=== PATIENT | female | born 1935 | race Caucasian/White ===

== ENCOUNTER 2016-08-10 08:30 | Observation (INO) | payer MEDICARE, OTHER ==
[~2016-08-10] VITALS: Ht 149.9 cm; Wt 59.0 kg
[~2016-08-10 08:30] MED LIST: ALEN70TA3 PO; CYCL10TA2 PO; DOCU-27 PO; DONE5TAB7 PO; FERR-26 PO; GABA600T2 PO; HYDR-2666 PO; HYDR25TA9 PO; LACT1CAP6 PO; LISI40TA PO; MULT1CAP15 PO; NAPR500T PO; OMEP40CA5 PO; SIMV20TA3 PO
--- NOTE | 2016-08-10 09:13 | ED.ADGEN ---
Past Medical History Past Medical History: Dementia, Hypertension Additional Past Medical Histor: neuropathy Past Surgical History: Other Alcohol Use: None Drug Use: None Adult General Chief Complaint Chief Complaint: OTHER COMPLAINTS HPI HPI Patient is a 81 year old woman, with history of dementia, hypertension, esophageal stricture, hiatal hernia, with previous food bolus impaction that is resolved over time, who presents to the emergency department with her daughter with report of a possible food bolus impaction since about 1 PM yesterday. Patient states that she was eating M[place]ese food, and felt as though the food became stuck in the upper portion of her throat. Has been attempting to dislodge the food since that time, usually it takes her about an hour after eating for food fully settle. Patient was unable to take her medications last night due to the inability to swallow. Patient did try swallowing water prior to coming to the ED is morning, and did fail. She states she is having mild soreness in her chest, denies any previous chest pain, any difficulty breathing , any vomiting, any nausea, any weakness emesis or tingling, any injuries. Patient has previously had an esophageal stricture with Dr. Fields, last occurred about a year ago. Patient is spitting up some clear phlegm in the ED. Review of Systems Review of Systems Constitutional: Denies fever or chills. [] Eyes: Denies change in visual acuity. [] HENT: Denies nasal congestion or sore throat. [] Respiratory: Denies cough or shortness of breath. [] Cardiovascular: Anterior chest soreness after coughing attending to swallow for the past several hours. Sensation of food bolus impaction. GI: Denies abdominal pain, nausea, vomiting, bloody stools or diarrhea. [] : Denies dysuria. [] Musculoskeletal: Denies back pain or joint pain. [] Integument: Denies rash. [] Neurologic: Denies headache, focal weakness or sensory changes. [] Endocrine: Denies polyuria or polydipsia. [] Lymphatic: Denies swollen glands. [] Psychiatric: Denies depression or anxiety. [] Current Medications Current Medications Current Medications Medications (Trade) Dose Ordered Sig/Ever Start Time Stop Time Status Last Admin Dose Admin Glucagon (Glucagen) 1 mg 1X ONCE 08/10/16 09:15 08/10/16 09:16 DC 08/10/16 09:48 1 MG Multi-Ingredient Mouthwash/Gargle (Gi Cocktail Single Dose) 15 ml 1X ONCE 08/10/16 10:15 08/10/16 10:17 DC 08/10/16 10:23 15 ML Nitroglycerin (Nitrostat) 0.4 mg PRN Q5MIN PRN 08/10/16 09:15 08/10/16 09:48 0.4 MG Allergies Allergies Allergies Coded Allergies Type Severity Reaction Last Updated Verified codeine Adverse Reaction Intermediate Nausea and Vomiting 08/15/15 Yes Physical Exam Physical Exam Constitutional: Well developed, well nourished, no acute distress, non-toxic appearance. Patient spitting clear mucus into basin. HENT: Normocephalic, atraumatic, bilateral external ears normal, oropharynx moist, nose normal. [Unable to visualize any abnormalities on examination, oropharynx is mildly injected but no exudate identified. Eyes: PERRLA, EOMI, conjunctiva normal, no discharge. [] Neck: Normal range of motion, no tenderness, supple, no stridor. [] Cardiovascular:Heart rate regular rhythm, no murmur , S1, S2, no rubs or gallops. [] No crepitus, mild anterior chest wall tenderness. Lungs & Thorax: Bilateral breath sounds clear to auscultation, no wheezing, rhonchi, rales. No chest wall tenderness or crepitus. [] Abdomen: Bowel sounds normal, soft, no tenderness, no masses, no pulsatile masses. [] Skin: Warm, dry, no erythema, no rash. [] Back: No tenderness, no CVA tenderness. [] Extremities: No tenderness, no cyanosis, no clubbing, ROM intact, no edema. [] Neurologic: Alert and oriented X 3, normal motor function, normal sensory function, no focal deficits noted. [] Psychologic: Affect normal, judgement normal, mood normal. [] Current Patient Data Vital Signs Vital Signs Date Time Temp Pulse Resp B/P Pulse Ox O2 Delivery O2 Flow Rate FiO2 08/10/16 09:48 71 198/86 08/10/16 08:40 98.2 16 99 Room Air 98.2 Lab Values Laboratory Tests Test 08/10/16 10:52 POC Hemoglobin 15.0g/dL (12-15) POC Hematocrit 44% (36-40) H POC Sodium 146mmol/L (135-145) H POC Potassium 4.1mmol/L (3.5-5.0) POC Chloride 110mmol/L (98-110) POC Total CO2 26mmol/L (23-32) Anion Gap 15mmol/L (6-14) H POC Blood Urea Nitrogen 22mg/dL (8-26) POC Creatinine 0.8mg/dL (0.5-1.4) Glucose Level 97mg/dL (70-99) POC Ionized Calcium (Maxx) 1.09mmol/L (1.13-1.32) L Laboratory Tests 08/10/16 10:52 EKG EKG EC: Sinus rhythm, heart rate 60 beats/minute, upright axis, low limb lead voltage, QTC of 430, QRS of 76, [place] 142, no ST elevations or depressions, no evidence of acute ST abnormalities. As interpreted by me. Radiology/Procedures Radiology/Procedures [] [address] [place], [place] [id number] IMAGING REPORT Signed PATIENT: THANH TAVERAS ACCOUNT: [id number] : 1935 LOCATION: ER AGE: 81 SEX: F EXAM STATUS: PRE ER ORD. PHYSICIAN: AMANDA BLAIR DO REASON: cough/CP/possible food bolus impaction PROCEDURE: CHEST PA & LATERAL Chest, 2 views, 08/10/2016: History: Possible food impaction The study is correlated with a CT chest exam from 11/17/2012. There is a known large hiatal hernia extending to the left of midline. There are prominent epicardial fat pads. The heart is probably within normal limits in size. There is calcific plaquing and tortuosity of the thoracic aorta. The pulmonary vascularity is normal. No acute infiltrate is seen. There is no evidence of pleural fluid. Mild spurring is present in the spine. IMPRESSION: 1. Large hiatal hernia. 2. No acute abnormality is detected. DICTATED and SIGNED BY: PAIGE LEON MD DATE: 08/10/16 0924 CC: AMANDA BLAIR DO; DESTINI JAIMES MD ~ Course & Med Decision Making Course & Med Decision Making Concern for recurrent food bolus impaction, with possible underlying esophageal stricture. Patient denies any chest pain except with coughing, has not had any vomiting, no difficult breathing, has been attempting to drink fluids at home since 1 PM yesterday. In the ED, I discussed use of glucagon, nitroglycerin to see if we can establish easing of the esophagus, in order to allow the food bolus to pass. Patient is not previously required endoscopy for removal of food bolus impaction, she states that it has taken some time, but they have always passed previously on her own. Patient received IV glucagon, nitroglycerin in the ED, spit up a small amount of food and fluid, and stated that she felt as though the obstruction was resolved, was given a trial with by mouth fluids, which she initially tolerated. Patient then stated that she felt "there is still some in there", and spit up a small amount of mucus. At that point, I contacted the patient's GI physician, Dr. Fields, and discussed findings and examination as above. Patient's chest x-ray is unremarkable, and she has stable vital signs in the emergency department, plan at this point will be to take her to the OR for intubation for airway protection, and EGD. I did discuss this with patient and daughter bedside, they're agreeable with this plan. Patient had an i-STAT performed which was unremarkable, ECG performed which was not concerning. Did contact health meter supervisor regarding arranging for anesthesia and the GI team to to perform this procedure emergently. Findings as above discussed with Dr. Velásquez of internal medicine, patient accepted to her service for admission as an observation at this point, if patient is able to tolerate procedure without issue, likely will be discharged home after it is completed. Patient remained stable during her ED course, transferred to the floor without issue. [] Dragon Disclaimer Dragon Disclaimer This electronic medical record was generated, in whole or in part, using a voice recognition dictation system. Departure Impression: Primary Impression: Esophageal abnormality Disposition: ADMITTED INPATIENT Admitting Physician: Jerald Velásquez Condition: STABLE AMANDA BLAIR DO Aug 10, 2016 09:13
[2016-08-10] MEDS ORDERED: GLUCAGON,HUMAN RECOMBINANT 1 MG/ML VIAL. IV ONE (09:15)
[2016-08-10] MEDS ORDERED: NITROGLYCERIN SUBLINGUAL 0.4 MG BOTTLE OF 25. SL PRN (09:15)
--- NOTE | 2016-08-10 09:29 | RAD ---
Chest, 2 views, 08/10/2016: History: Possible food impaction The study is correlated with a CT chest exam from 11/17/2012. There is a known large hiatal hernia extending to the left of midline. There are prominent epicardial fat pads. The heart is probably within normal limits in size. There is calcific plaquing and tortuosity of the thoracic aorta. The pulmonary vascularity is normal. No acute infiltrate is seen. There is no evidence of pleural fluid. Mild spurring is present in the spine. IMPRESSION: 1. Large hiatal hernia. 2. No acute abnormality is detected.
[2016-08-10] MEDS ORDERED: LIDO:MAALOX:DONNATAL 1:1:1 15 ML SINGLE DOSE SWSW ONE (10:15)
[2016-08-10 10:57] LABS: POTASSIUM ISTAT 4.1 mmol/L (3.5-5.0)
[2016-08-10] MEDS ORDERED: METOCLOPRAMIDE HCL 10 MG/2 ML VIAL. IV ONE (11:30)
--- NOTE | 2016-08-10 11:45 | EKG ---
[facility] [address] [place] [address] Test Date: 2016-08-10 Test Time: 10:58:37 Pat Name: THANH TAVERAS Department: Room: 506 1 Gender: F Healthcare Insurance Sales Agent: : 1935 Requested By: AMANDA BLAIR Order Number: [id number] Reading MD: Gabriela Del Angel Measurements Intervals [place] Rate: 60 P: 52 SC: 142 QRS: 17 QRSD: 76 T: 14 QT: 430 QTc: 430 Interpretive Statements SINUS RHYTHM NORMAL ECG RI6.01 Unconfirmed report Compared to ECG 11/17/2012 13:44:01 No significant changes Electronically Signed On 08-11-2016 0:45:08 PHARMACEUTICAL SPECIALTY REPRESENTATIVE by Gabriela Del Angel
[2016-08-10] MEDS ORDERED: MEPERIDINE PF 25 MG/ML VIAL. ONE (12:27)
[2016-08-10] MEDS ORDERED: MIDAZOLAM HCL/PF 5 MG/5 ML VIAL ONE (12:27)
[2016-08-10] MEDS ORDERED: IV RINGERS,LACTATED 1000ML 1,000 ML IV SCH (12:30)
[2016-08-10] MEDS ORDERED: MIDAZOLAM HCL/PF 5 MG/5 ML VIAL IV ONE ×3 (12:30→12:39)
[2016-08-10] MEDS ORDERED: MEPERIDINE PF 25 MG/ML VIAL. IV PRN (12:30)
[2016-08-10] MEDS ORDERED: MEPERIDINE PF 25 MG/ML VIAL. IV ONE (12:37)
[2016-08-10 13:05] VITALS: BP 157/73
--- NOTE | 2016-08-10 15:14 | PDOC ---
PROGRESS NOTES Chief Complaint Chief Complaint pt not seen, cannot find pt in both 5 th floor and outpt GI locations. will sign off till page again Vitals Vitals Vital Signs Date Time Temp Pulse Resp B/P Pulse Ox O2 Delivery O2 Flow Rate FiO2 08/10/16 13:05 98.4 84 20 157/73 95 Room Air 98.4 Physical Exam Lungs: Clear Labs LABS Laboratory Tests Test 08/10/16 10:52 Bedside Hemoglobin 15.0g/dL (12-15) Bedside Hematocrit 44% (36-40) Bedside Sodium 146mmol/L (135-145) Bedside Potassium 4.1mmol/L (3.5-5.0) Bedside Chloride 110mmol/L (98-110) Bedside Total CO2 26mmol/L (23-32) Anion Gap 15mmol/L (6-14) Bedside Blood Urea Nitrogen 22mg/dL (8-26) Bedside Creatinine 0.8mg/dL (0.5-1.4) Glucose Level 97mg/dL (70-99) Bedside Ionized Calcium (Maxx) 1.09mmol/L (1.13-1.32) Assessment and Plan Assessmemt and Plan Problems Medical Problems: (1) Esophageal abnormality Status: Acute Problems: Comment Review of Relevant I have reviewed the following items bucky (where applicable) has been applied. Labs Laboratory Tests Test 08/10/16 10:52 Bedside Hemoglobin 15.0g/dL (12-15) Bedside Hematocrit 44% (36-40) Bedside Sodium 146mmol/L (135-145) Bedside Potassium 4.1mmol/L (3.5-5.0) Bedside Chloride 110mmol/L (98-110) Bedside Total CO2 26mmol/L (23-32) Anion Gap 15mmol/L (6-14) Bedside Blood Urea Nitrogen 22mg/dL (8-26) Bedside Creatinine 0.8mg/dL (0.5-1.4) Glucose Level 97mg/dL (70-99) Bedside Ionized Calcium (Maxx) 1.09mmol/L (1.13-1.32) Laboratory Tests Test 08/10/16 10:52 Bedside Hemoglobin 15.0g/dL (12-15) Bedside Hematocrit 44% (36-40) Bedside Sodium 146mmol/L (135-145) Bedside Potassium 4.1mmol/L (3.5-5.0) Bedside Chloride 110mmol/L (98-110) Bedside Total CO2 26mmol/L (23-32) Anion Gap 15mmol/L (6-14) Bedside Blood Urea Nitrogen 22mg/dL (8-26) Bedside Creatinine 0.8mg/dL (0.5-1.4) Glucose Level 97mg/dL (70-99) Bedside Ionized Calcium (Maxx) 1.09mmol/L (1.13-1.32) Medications Current Medications Glucagon (Glucagen) 1 mg 1X ONCE IV Last administered on 08/10/16 09:48; Start 08/10/16 at 09:15; Stop 08/10/16 at 09:16; Status DC Nitroglycerin (Nitrostat) 0.4 mg PRN Q5MIN PRN SL CHEST PAIN Last administered on 08/10/16 09:48; Start 08/10/16 at 09:15 Multi-Ingredient Mouthwash/Gargle (Gi Cocktail Single Dose) 15 ml 1X ONCE SWSW Last administered on 08/10/16 10:23; Start 08/10/16 at 10:15; Stop 08/10/16 at 10:17; Status DC Metoclopramide HCl (Reglan) 10 mg 1X ONCE IV Last administered on 08/10/16 12 :33; Start 08/10/16 at 11:30; Stop 08/10/16 at 11:31; Status DC Meperidine HCl (Demerol) 25 mg STK-MED ONCE .ROUTE ; Start 08/10/16 at 12:27; Stop 08/10/16 at 12:28; Status DC Midazolam HCl 5 mg 5 mg STK-MED ONCE .ROUTE ; Start 08/10/16 at 12:27; Stop at 12:28; Status DC Lactated Ringer's (Iv Lactated Ringers) 1,000 ml @ 100 mls/hr Q10H IV Last administered on 08/10/16 12:34; Start 08/10/16 at 12:30 Meperidine HCl (Demerol) 25 mg PRN 1X PRN IV SHIVERING; Start 08/10/16 at 12:30 ; Stop 08/12/16 at 12:29 Midazolam HCl (Versed) 5 mg 1X ONCE IV ; Start 08/10/16 at 12:30; Stop at 12:58; Status DC Midazolam HCl (Versed) 5 mg STK-MED ONCE IV Last administered on 08/10/16 12: 36; Start 08/10/16 at 12:36; Stop 08/10/16 at 12:40; Status DC Meperidine HCl (Demerol) 25 mg STK-MED ONCE IV Last administered on 08/10/16 12:37; Start 08/10/16 at 12:37; Stop 08/10/16 at 12:40; Status DC Midazolam HCl (Versed) 5 mg STK-MED ONCE IV Last administered on 08/10/16 12: 39; Start 08/10/16 at 12:39; Stop 08/10/16 at 12:40; Status DC Active Scripts Active Reported Simvastatin 20 Mg Tablet 20 Mg PO HS Donepezil Hcl 5 Mg Tablet 5 Mg PO DAILY Probiotic (Lactobacillus Acidophilus) 1 Each Capsule 1 Each PO DAILY Colace (Docusate Sodium) 100 Mg Capsule 100 Mg PO DAILY Omeprazole 40 Mg Capsule.dr 40 Mg PO DAILY Multivitamins (Multivitamin) 1 Each Capsule 1 Each PO DAILY Lisinopril 40 Mg Tablet 10 Mg PO DAILY Gabapentin 600 Mg Tablet 600 Mg PO HS Vitals/I & O Vital Sign - Last 24 Hours 08/10/16 08/10/16 08/10/16 08/10/16 08:40 09:48 12:03 12:42 Temp 98.2 98.4 98.2 98.4 Pulse 67 71 66 100 Resp 16 20 20 B/P 217/91 198/86 Pulse Ox 99 98 97 O2 Delivery Room Air 08/10/16 08/10/16 08/10/16 12:44 12:55 13:05 Temp 98.4 98.4 98.4 98.4 98.4 98.4 Pulse 96 81 84 Resp 20 20 20 B/P 160/77 150/70 157/73 Pulse Ox 97 93 95 O2 Delivery Room Air MANDO FREITAS MD Aug 10, 2016 15:14
--- NOTE | 2016-08-10 23:21 | CONS ---
DATE OF CONSULTATION: 08/10/2016 REQUESTING PHYSICIAN: Trinity Lema DO. PRIMARY CARE PHYSICIAN: Destini Mora MD. REASON FOR CONSULTATION: Food bolus. HISTORY OF PRESENT ILLNESS: This is an 81-year-old female who was admitted to the [place] ER on 08/10/2016. She came in after having eaten Wallisian food at 1:00 p.m. on the day prior. She was unable to handle her secretion. In the ER, she was given glucagon and nitroglycerine and apparently had some relief of her symptoms and was able to drink water. They used water gun and she apparently was not able to handle her secretions and vomited that up. I was contacted and ordered Reglan; however, the ER did not give the medication. She has a history of an esophageal stricture and a hiatal hernia and reports her last dilation was approximately 1 year ago. PAST MEDICAL HISTORY: 1. Dementia. 2. Hypertension. 3. Neuropathy. 4. Hiatal hernia with esophageal stricture. REVIEW OF SYSTEMS: As per HPI. ALLERGIES: CODEINE. MEDICATIONS: In the ER, she was given glucagon, nitroglycerin. There is no known aspirin, ibuprofen, Aleve or blood thinner. PHYSICAL EXAMINATION: VITAL SIGNS: She is afebrile. Vital signs are stable. GENERAL: She is a well-developed, well-nourished female, in no apparent distress. HEENT: Oropharynx is clear. CARDIOVASCULAR: S1, S2. LUNGS: Clear. ABDOMEN: Has normoactive bowel sounds, soft, nontender, nondistended. EXTREMITIES: No edema. IMAGING: Chest x-ray shows a large hiatal hernia. LABORATORY VALUES: Sodium is 146. Potassium 4.1. Hemoglobin 15. ASSESSMENT AND PLAN: 1. Food bolus: Per the ER doctor, the patient was unable to handle her secretion. Currently, she states that she is still having ____ she is not able to swallow. We will proceed with upper endoscopy for further evaluation. Reglan was ordered several hours ago; however, the patient did not receive the medication. Given that the ER continued to give her sips of water after I requested she be NPO, I will wait until we are able to give her Reglan in order to try to empty her stomach prior to proceed with endoscopy. The risks and benefits of the procedure including bleeding, perforation, ____ sedation were explained and she has agreed to proceed. Thank you for allowing me to participate in the care of this patient. FRANCOIS ANTHONY MD DR: MC/valerie JOB#: [id number] / [id number] DESTINI Savage MD
== END 2016-08-10 18:53 | disposition home or self-care (01) ==
LOC: ER 08:30 → 5 NORTH 10:52
PROVIDERS: ADMIT Internal Medicine; ATTEND Internal Medicine
DX: K20.9 Esophagitis, unspecified (principal); F03.90 Unspecified dementia, unspecified severity, without behavioral disturbance, psychotic disturbance, mood disturbance, and anxiety; I10 Essential (primary) hypertension; G62.9 Polyneuropathy, unspecified; M25.70 Osteophyte, unspecified joint; K44.9 Diaphragmatic hernia without obstruction or gangrene; T18.128A Food in esophagus causing other injury, initial encounter; T18.108A Unspecified foreign body in esophagus causing other injury, initial encounter
CPT/HCPCS: 43247; 71020; 80047; 93005; 96374; 99285; G0378; J1610; J2175; J2250; J2765; G0379; J7120

== ENCOUNTER → 2016-09-04 | Day surgery (SDC) | payer MEDICARE, OTHER ==
[~2016-09-04] MED LIST changes: +CHOL10003 PO; +FENTANYL PF 100 MCG/2 ML VIAL. IV PRN; +IV RINGERS,LACTATED 1000ML 1,000 ML IV SCH; +LIDOCAINE 1% 1 ML SYRINGE. ID PRN; +LIDOCAINE 2% PF Vial for OR 5 ML VIAL. ONE; +PROCHLORPERAZINE 10 MG/2 ML VIAL. IV PRN; +PROPOFOL 20 ML IV ONE
[2016-09-04 10:00] VITALS: BP 147/62
--- NOTE | 2016-09-05 16:24 | PATHOLOGY ---
PATHOLOGY REPORT * * * * * * * * FINAL DIAGNOSIS: Esophageal biopsy, 30 cm from incisors: - Segment of hyperplastic squamous esophageal mucosa consistent with reflux esophagitis. COMMENT: Sections of the esophageal biopsy at 30 cm from incisors reveals a segment of focally tangentially oriented hyperplastic squamous esophageal mucosa. There is no evidence of Zendejas's change, dysplasia, or malignancy. (JPM:mgfreddie; d/t: 09/05/16) REPORT ELECTRONICALLY SIGNED BY: Papo Malin M.D. DATE/TIME: 09/05/2016 16:23 * * * * * * * * GROSS PATHOLOGY: Received in formalin labeled "Lissa Taveras and bx 30 cm from incisors," is a segment of boyle soft tissue measuring 0.5 cm in maximum dimension. The specimen is submitted entirely in cassette A1. (TTL; 09/04/2016) INITIAL CPT CODE(S): A; 29168 Professional services performed by [facility] [place] [address] Technical services performed by [facility] at [address] [place] [address]. SPECIMEN(S) RECEIVED: A.Biopsy 30 cm from incisors CLINICAL HISTORY: History of dysphagia PATIENT: LISSA TAVERAS /AGE: 12 1935 (Age: 81) PATIENT #: [id number] CASE #: SPECIMEN COLLECTION DATE: 09/04/2016 SPECIMEN RECEIVED DATE: 09/04/2016 [facility] - [address] [place] [address] - PHONE: [phone] * * * END OF REPORT * * *
== END | disposition home or self-care (01) ==
LOC: ENDOS 07:53
PROVIDERS: ATTEND Internal Medicine Gastroenterology
DX: K22.2 Esophageal obstruction (principal); K44.9 Diaphragmatic hernia without obstruction or gangrene; I10 Essential (primary) hypertension; E78.00 Pure hypercholesterolemia, unspecified; M19.90 Unspecified osteoarthritis, unspecified site; D64.9 Anemia, unspecified; K21.9 Gastro-esophageal reflux disease without esophagitis; Z87.39 Personal history of other diseases of the musculoskeletal system and connective tissue; Z90.710 Acquired absence of both cervix and uterus
CPT/HCPCS: 43239; 43450; 88305; J2704

== ENCOUNTER 2016-12-31 18:50 | Emergency (ER) | payer MEDICARE, OTHER ==
[~2016-12-31] VITALS: Ht 152.4 cm; Wt 61.2 kg
[~2016-12-31 18:50] MED LIST changes: +DOCU-109 PO; -DOCU-27 PO; -FENTANYL PF 100 MCG/2 ML VIAL. IV PRN; -HYDR-2666 PO; +HYDR-2758 PO; -IV RINGERS,LACTATED 1000ML 1,000 ML IV SCH; -LIDOCAINE 1% 1 ML SYRINGE. ID PRN; -LIDOCAINE 2% PF Vial for OR 5 ML VIAL. ONE; -PROCHLORPERAZINE 10 MG/2 ML VIAL. IV PRN; -PROPOFOL 20 ML IV ONE
[2016-12-31 19:43] LABS: BASO # 0.1 x10^3/uL (0.0-0.2); BASO % 1 % (0-3); EOS % 1 % (0-3); HEMOGLOBIN 14.5 g/dL (12.0-15.5); LYMPH # 2.5 x10^3/uL (1.0-4.8); LYMPH % 27 % (24-48); MEAN CORPUSCULAR HEMOGLOBIN 30 pg (25-35); MEAN CORPUSCULAR HGB CONC 33 g/dL (31-37); MEAN CORPUSCULAR VOLUME 92 fL (79-100); MONO % 7 % (0-9); NEUT % 65 % (31-73); PLATELET COUNT 265 x10^3/uL (140-400); RED BLOOD COUNT 4.78 x10^6/uL (3.50-5.40); RED CELL DISTRIBUTION WIDTH 13.5 % (11.5-14.5); WHITE BLOOD COUNT 9.4 x10^3/uL (4.0-11.0)
[2016-12-31] MEDS ORDERED: GLUCAGON,HUMAN RECOMBINANT 1 MG/ML VIAL. IV ONE (19:45)
[2016-12-31 20:02] LABS: CALCIUM 9.2 mg/dL (8.5-10.1); CREATININE 0.9 mg/dL (0.6-1.0); GFR 60.1; POTASSIUM 3.3 mmol/L (3.5-5.1)
[2016-12-31 20:06] LABS: ALBUMIN 3.6 g/dL (3.4-5.0); ALBUMIN/GLOBULIN RATIO 0.9 (1.0-1.7); TOTAL BILIRUBIN 0.4 mg/dL (0.2-1.0); TOTAL PROTEIN 7.7 g/dL (6.4-8.2)
[2016-12-31] MEDS ORDERED: ONDANSETRON PF 4 MG/2 ML VIAL. IV PRN (20:30)
[2016-12-31] MEDS ORDERED: LIDOCAINE 2% PF Vial for OR 5 ML VIAL. ONE (21:15)
[2016-12-31] MEDS ORDERED: PROPOFOL 20 ML IV ONE (21:15)
--- NOTE | 2016-12-31 21:25 | PHYS DOC ---
Past Medical History Past Medical History: Dementia, GERD, High Cholesterol, Hypertension Additional Past Medical Histor: neuropathy, FOOD BOLUS, HIATAL HERNIA Past Surgical History: Hysterectomy, Other Additional Past Surgical Histo: THROAT STRETCHED, ENDOSCOPY Alcohol Use: None Drug Use: None Adult General Chief Complaint Chief Complaint: FOREIGN BODY HPI HPI Patient is a 81 year old female presenting to the emergency department for evaluation of spitting up and not being able to eat or drink without spitting all of it up. Patient has had esophageal food bolus issues in the past and her GI physician is Dr. Fields and she told the patient to come into the emergency department. This started at noon after eating some corn beef. Review of Systems Review of Systems Constitutional: Denies fever or chills [] Respiratory: Denies cough or shortness of breath [] Cardiovascular: No additional information not addressed in HPI [] GI: Denies abdominal pain, nausea, vomiting, bloody stools or diarrhea [] : Denies dysuria or hematuria [] Musculoskeletal: Denies back pain or joint pain [] Integument: Denies rash or skin lesions [] Neurologic: Denies headache, focal weakness or sensory changes [] Current Medications Current Medications Current Medications Medications (Trade) Dose Ordered Sig/Ever Start Time Stop Time Status Last Admin Dose Admin Glucagon (Glucagen) 1 mg 1X ONCE 12/31/16 19:45 12/31/16 19:46 DC 12/31/16 19:49 1 MG Lidocaine HCl (Lidocaine Pf 2% Vial) 5 ml STK-MED ONCE 12/31/16 21:15 12/31/16 21:16 DC Ondansetron HCl (Zofran) 4 mg PRN Q8HRS PRN 12/31/16 20:30 01/01/17 20:29 Propofol 20 ml @ As Directed STK-MED ONCE 12/31/16 21:15 12/31/16 21:16 DC Allergies Allergies Allergies Coded Allergies Type Severity Reaction Last Updated Verified codeine Adverse Reaction Intermediate Nausea and Vomiting 09/04/16 Yes Physical Exam Physical Exam Constitutional: Well developed, well nourished, no acute distress, non-toxic appearance. [] HENT: Normocephalic, atraumatic, bilateral external ears normal, oropharynx moist, no oral exudates, nose normal. [] Eyes: PERRLA, EOMI, conjunctiva normal, no discharge. [] Neck: Normal range of motion, no tenderness, supple, no stridor. [] Cardiovascular:Heart rate regular rhythm, no murmur [] Lungs & Thorax: Bilateral breath sounds clear to auscultation [] Abdomen: Bowel sounds normal, soft, no tenderness, no masses, no pulsatile masses. [] Skin: Warm, dry, no erythema, no rash. [] Back: No tenderness, no CVA tenderness. [] Extremities: No tenderness, no cyanosis, no clubbing, ROM intact, no edema. [] Neurologic: Alert and oriented X 3, normal motor function, normal sensory function, no focal deficits noted. [] Psychologic: Affect normal, judgement normal, mood normal. [] Current Patient Data Vital Signs Vital Signs Date Time Temp Pulse Resp B/P (MAP) Pulse Ox O2 Delivery O2 Flow Rate FiO2 12/31/16 21:19 98.4 62 18 96 98.4 12/31/16 19:11 209/93 (131) Room Air Lab Values Laboratory Tests Test 12/31/16 19:37 White Blood Count 9.4 x10^3/uL (4.0-11.0) Red Blood Count 4.78 x10^6/uL (3.50-5.40) Hemoglobin 14.5 g/dL (12.0-15.5) Hematocrit 44.0 % (36.0-47.0) Mean Corpuscular Volume 92 fL (79-100) Mean Corpuscular Hemoglobin 30 pg (25-35) Mean Corpuscular Hemoglobin Concent 33 g/dL (31-37) Red Cell Distribution Width 13.5 % (11.5-14.5) Platelet Count 265 x10^3/uL (140-400) Neutrophils (%) (Auto) 65 % (31-73) Lymphocytes (%) (Auto) 27 % (24-48) Monocytes (%) (Auto) 7 % (0-9) Eosinophils (%) (Auto) 1 % (0-3) Basophils (%) (Auto) 1 % (0-3) Neutrophils # (Auto) 6.2 x10^3uL (1.8-7.7) Lymphocytes # (Auto) 2.5 x10^3/uL (1.0-4.8) Monocytes # (Auto) 0.6 x10^3/uL (0.0-1.1) Eosinophils # (Auto) 0.0 x10^3/uL (0.0-0.7) Basophils # (Auto) 0.1 x10^3/uL (0.0-0.2) Sodium Level 145 mmol/L (136-145) Potassium Level 3.3 mmol/L (3.5-5.1) L Chloride Level 107 mmol/L (98-107) Carbon Dioxide Level 29 mmol/L (21-32) Anion Gap 9 (6-14) Blood Urea Nitrogen 25 mg/dL (7-20) H Creatinine 0.9 mg/dL (0.6-1.0) Estimated GFR (Cockcroft-Gault) 60.1 BUN/Creatinine Ratio 28 (6-20) H Glucose Level 106 mg/dL (70-99) H Calcium Level 9.2 mg/dL (8.5-10.1) Total Bilirubin 0.4 mg/dL (0.2-1.0) Aspartate Amino Transferase (AST) 18 U/L (15-37) Alanine Aminotransferase (ALT) 19 U/L (14-59) Alkaline Phosphatase 86 U/L (46-116) Total Protein 7.7 g/dL (6.4-8.2) Albumin 3.6 g/dL (3.4-5.0) Albumin/Globulin Ratio 0.9 (1.0-1.7) L Laboratory Tests 12/31/16 19:37 Laboratory Tests 12/31/16 19:37 EKG EKG [] Radiology/Procedures Radiology/Procedures [] Course & Med Decision Making Course & Med Decision Making Dr. June is coming into the emergency department to do an EGD. Dragon Disclaimer Dragon Disclaimer This electronic medical record was generated, in whole or in part, using a voice recognition dictation system. Departure Departure Impression: Primary Impression: Esophageal foreign body Disposition: ADMITTED INPATIENT Admitting Physician: Other (RENETTA) Condition: STABLE Referrals: DESTINI JAIMES MD (PCP) NATHALIE BOYD DO Dec 31, 2016 21:25
--- NOTE | 2016-12-31 21:26 | PDOC2 ---
GI CONSULT Reason For Consult: Impacted food bolus. HPI: HPI: 81 y/o female presents with h/o impacted food bolus. Exact time of ingestion unclear, but per ER, may have been corned beef. H/o prior impactions, lastly in July. Re-scoped August and dilated, though report not available. Path from that instance c/w reflux. Taking PPI at home daily per relative. H/o "hiatal hernia" per old records. No other GI history available (patient with dementia) and above from available records.. PMH: PMH: Dementia, HTN, "neuropathy", Deafness, Diverticulosis/itis, GERD, OA, tonsillectomy, hysterectomy. FH: Family History: No pertinent hx Social History: Smoke: No ALCOHOL: none Drugs: None ROS: GEN: Denies fevers, chills, sweats HEENT: Denies blurred vision, sore throat CV: Denies chest pain RESP: Denies shortness of air, cough GI: Per HPI : Denies hematuria, dysuria ENDO: Denies weight changes NEURO: Denies confusion, dizziness MSK: Denies weakness, joint pain/swelling SKIN: Denies jaundice, pruritus Vitals: Vitals: Vital Signs Date Time Temp Pulse Resp B/P (MAP) Pulse Ox O2 Delivery O2 Flow Rate FiO2 12/31/16 19:11 98.4 77 18 209/93 (131) 96 Room Air 98.4 Labs: Labs: Laboratory Tests Test 12/31/16 19:37 White Blood Count 9.4 x10^3/uL (4.0-11.0) Red Blood Count 4.78 x10^6/uL (3.50-5.40) Hemoglobin 14.5 g/dL (12.0-15.5) Hematocrit 44.0 % (36.0-47.0) Mean Corpuscular Volume 92 fL (79-100) Mean Corpuscular Hemoglobin 30 pg (25-35) Mean Corpuscular Hemoglobin Concent 33 g/dL (31-37) Red Cell Distribution Width 13.5 % (11.5-14.5) Platelet Count 265 x10^3/uL (140-400) Neutrophils (%) (Auto) 65 % (31-73) Lymphocytes (%) (Auto) 27 % (24-48) Monocytes (%) (Auto) 7 % (0-9) Eosinophils (%) (Auto) 1 % (0-3) Basophils (%) (Auto) 1 % (0-3) Neutrophils # (Auto) 6.2 x10^3uL (1.8-7.7) Lymphocytes # (Auto) 2.5 x10^3/uL (1.0-4.8) Monocytes # (Auto) 0.6 x10^3/uL (0.0-1.1) Eosinophils # (Auto) 0.0 x10^3/uL (0.0-0.7) Basophils # (Auto) 0.1 x10^3/uL (0.0-0.2) Sodium Level 145 mmol/L (136-145) Potassium Level 3.3 mmol/L (3.5-5.1) Chloride Level 107 mmol/L (98-107) Carbon Dioxide Level 29 mmol/L (21-32) Anion Gap 9 (6-14) Blood Urea Nitrogen 25 mg/dL (7-20) Creatinine 0.9 mg/dL (0.6-1.0) Estimated GFR (Cockcroft-Gault) 60.1 BUN/Creatinine Ratio 28 (6-20) Glucose Level 106 mg/dL (70-99) Calcium Level 9.2 mg/dL (8.5-10.1) Total Bilirubin 0.4 mg/dL (0.2-1.0) Aspartate Amino Transf (AST/SGOT) 18 U/L (15-37) Alanine Aminotransferase (ALT/SGPT) 19 U/L (14-59) Alkaline Phosphatase 86 U/L (46-116) Total Protein 7.7 g/dL (6.4-8.2) Albumin 3.6 g/dL (3.4-5.0) Albumin/Globulin Ratio 0.9 (1.0-1.7) Allergies: Coded Allergies: codeine (Verified Adverse Reaction, Intermediate, Nausea and Vomiting, ) Medications: Current Medications Medications (Trade) Dose Ordered Sig/Ever Route PRN Reason Start Time Stop Time Status Last Admin Dose Admin Glucagon (Glucagen) 1 mg 1X ONCE IV 12/31/16 19:45 12/31/16 19:46 DC 12/31/16 19:49 PE: GEN: NAD HEENT: Atraumatic, PERRLA LUNGS: CTAB HEART: RRR, no murmurs ABD: NABS, S/ND/NT, no masses EXTREMITY: No edema SKIN: No rashes, no jaundice NEURO/PSYCH: Neuro grossly intact/some memory issues. A/P: A/P: IMP: Impacted food bolus. REC: Proceed with EGD. Other pending. NAINA JACKSON MD Dec 31, 2016 21:26
[2016-12-31] MEDS ORDERED: IV RINGERS,LACTATED 1000ML 1,000 ML IV ONE (21:30)
--- NOTE | 2016-12-31 21:41 | PDOC4 ---
PROCEDURE Procedure EGD/foreign body. Ind: Impacted food bolus. Meds: per anesthesia. Findings: E--multiple tertiary contractions. Impacted meat distally; able to push into stomach with gentle pressure. After passage, stricture seen likely just under 40F. No resistance to small caliber scope. G--Large hiatal hernia. D- normal bulb. Tolerated well. IMP: food bolus, resolved. Peptic stricture Large hiatal hernia REC: Continue PPI Soft food only/ground meats. Call Dr. Fields's office to schedule repeat 'scope and dil in 1-2 weeks. OK to go home after recovered from anesthesia. Thanks. NAINA JACKSON MD Dec 31, 2016 21:41
[2016-12-31 21:42] VITALS: BP 137/63
== END 2016-12-31 21:06 | disposition other institution (70) ==
LOC: ER 18:50
DX: T18.128A Food in esophagus causing other injury, initial encounter (principal); X58.XXXA Exposure to other specified factors, initial encounter; Y93.89 Activity, other specified; Y92.89 Other specified places as the place of occurrence of the external cause; Y99.8 Other external cause status; E78.00 Pure hypercholesterolemia, unspecified; F03.90 Unspecified dementia, unspecified severity, without behavioral disturbance, psychotic disturbance, mood disturbance, and anxiety; H91.90 Unspecified hearing loss, unspecified ear; I10 Essential (primary) hypertension; K21.9 Gastro-esophageal reflux disease without esophagitis; G62.9 Polyneuropathy, unspecified; Z90.710 Acquired absence of both cervix and uterus; Z88.5 Allergy status to narcotic agent
CPT/HCPCS: 36415; 80053; 85027; 96361; 96374; 99285; J1610; J2704; J7120

== ENCOUNTER → 2017-02-19 | Day surgery (SDC) | payer MEDICARE, OTHER ==
[~2017-02-19] MED LIST changes: +GABA-585 PO; +IV RINGERS,LACTATED 1000ML 1,000 ML IV SCH; +LIDOCAINE 1% 1 ML SYRINGE. ID PRN; +LIDOCAINE 2% PF Vial for OR 5 ML VIAL. ONE; +NAPR500T3 PO; +PROCHLORPERAZINE 10 MG/2 ML VIAL. IV PRN; +PROPOFOL 20 ML IV ONE; +fentaNYL PF VIAL 100 MCG/2 ML VIAL IV PRN
[2017-02-19 09:58] VITALS: BP 140/67
--- NOTE | 2017-02-20 13:34 | PATHOLOGY ---
PATHOLOGY REPORT * * * * * * * * FINAL DIAGNOSIS: Gastric biopsy, antrum: - Consistent with mild reactive gastropathy, with focal mild chronic inflammation. COMMENT: Sections of the gastric biopsy reveal segments of gastric antral mucosa showing congestion, mild foveolar hyperplasia, and focal mild chronic inflammation. An immunoperoxidase stain for Helicobacter is obtained. No Helicobacter organisms are identified. The findings are consistent with a mild reactive gastropathy. (JPM:mgr; 02/19/2017) Special Stain Performed: Immunoperoxidase stain for Helicobacter (A1) REPORT ELECTRONICALLY SIGNED BY: Papo Malin M.D. DATE/TIME: 02/20/2017 13:33 * * * * * * * * GROSS PATHOLOGY: Received in formalin labeled "Lissa Taveras, gastric antrum biopsy," is a segment of boyle soft tissue measuring 0.4 cm in maximum dimension. The specimen is submitted entirely in cassette A1. (JPM; 02/19/17) INITIAL CPT CODE(S): A; 87601, 92143 Professional services performed [place] [facility] [place] [address] Technical services performed by [facility] at [address] [place] [address]. SPECIMEN(S) RECEIVED: A.Gastric antrum biopsy CLINICAL HISTORY: Dysphagia PATIENT: LISSA TAVERAS /AGE: 12 1935 (Age: 81) PATIENT #: [id number] ALT CASE #: SPECIMEN COLLECTION DATE: 02/19/2017 SPECIMEN RECEIVED DATE: 02/19/2017 [facility] - [address] [place] [address] - PHONE: [phone] * * * END OF REPORT * * *
== END | disposition home or self-care (01) ==
LOC: ENDOS 07:58
PROVIDERS: ATTEND Internal Medicine Gastroenterology
DX: K22.2 Esophageal obstruction (principal); K29.70 Gastritis, unspecified, without bleeding; F03.90 Unspecified dementia, unspecified severity, without behavioral disturbance, psychotic disturbance, mood disturbance, and anxiety; E78.00 Pure hypercholesterolemia, unspecified; M19.90 Unspecified osteoarthritis, unspecified site; D64.9 Anemia, unspecified; Z86.69 Personal history of other diseases of the nervous system and sense organs; Z90.710 Acquired absence of both cervix and uterus; Z87.39 Personal history of other diseases of the musculoskeletal system and connective tissue; Z88.6 Allergy status to analgesic agent
CPT/HCPCS: 43239; 43450; J2001; J2704; 88305; 88342

== ENCOUNTER → 2019-05-06 | Outpatient (CLI) | payer MEDICARE, OTHER ==
[2017-02-19 09:58] VITALS: BP 140/67
[~2019-05-06] MED LIST changes: -FERR-26 PO; +FERR325T14 PO; -GABA600T2 PO; +GABA600T7 PO; +HYDR-2145 PO; -HYDR-2758 PO; +HYDR-2761 PO; -HYDR25TA9 PO; -IV RINGERS,LACTATED 1000ML 1,000 ML IV SCH; -LIDOCAINE 1% 1 ML SYRINGE. ID PRN; -LIDOCAINE 2% PF Vial for OR 5 ML VIAL. ONE; +LISI-130 PO; -LISI40TA PO; +NAPR-514 PO; +NAPR-683 PO; -NAPR500T PO; -NAPR500T3 PO; +OMEP40CA45 PO; -OMEP40CA5 PO; -PROCHLORPERAZINE 10 MG/2 ML VIAL. IV PRN; -PROPOFOL 20 ML IV ONE; -fentaNYL PF VIAL 100 MCG/2 ML VIAL IV PRN
--- NOTE | 2019-05-06 16:57 | RAD ---
CERVICAL SPINE WO CONTRAST DATE: 05/06/2019 2:45 PM INDICATION: Worsening neck pain TECHNIQUE: Multiplanar multisequence magnetic resonance imaging of the cervical spine was performed without administration of intravenous contrast using the standard cervical spine protocol. COMPARISON: None. FINDINGS: The cervical spine is normally aligned. No acute fracture. Moderate multilevel degenerative disc desiccation and disc height loss. Mild edema along the superior endplate of T1 with minimal height loss. The spinal cord is normal in signal intensity. On the limited views of the cranial cavity and brain, the cerebellum and kari have demonstrate advanced cerebral volume loss and chronic small vessel ischemic disease. No Chiari malformation. No soft tissue abnormality. Normal signal voids are present in the vertebral arteries. C2-3: No significant spinal canal stenosis or neural foraminal narrowing. C3-4: Uncovertebral hypertrophy. Mild left neural foraminal narrowing. C4-5: Disc osteophyte complex with central protrusion which abuts the ventral cord. Ligamentum flavum thickening. Mild spinal stenosis. No significant neural foraminal narrowing. C5-6: Disc osteophyte complex. Uncovertebral hypertrophy. Ligamentum flavum thickening. Severe spinal stenosis. Mild bilateral neural foraminal narrowing. C6-7: Disc ossific complex. Uncovertebral hypertrophy. Mild spinal stenosis. Mild left neural foraminal narrowing. C7-T1: Disc osteophyte complex. No significant spinal stenosis or neural foraminal narrowing. IMPRESSION: Edema along the superior endplate of T1 with minimal height loss, likely acute to subacute compression deformity. Severe spinal stenosis at C5-6. Degenerative changes at the remaining levels as above. Electronically signed by: Percy Arango MD (05/06/2019 4:55 PM) [facility]
--- NOTE | 2019-05-06 17:06 | RAD ---
LUMBAR SPINE WO CONTRAST Date: 05/06/2019 3:30 PM Indication: Worsening back pain, lower extremity weakness Comparison: 12/20/2013. Technique: Multi-planar multi-weighted magnetic resonance imaging of the lumbar spine was performed without intravenous contrast using the standard lumbar spine protocol. FINDINGS: L1 compression deformity with 40% vertebral body height loss, edema throughout the vertebral body, and fracture cleft along the superior endplate. Moderate prevertebral edema. Minimal osseous retropulsion. The lumbar spine is normally aligned. Mild multilevel degenerative disc desiccation and disc height loss. The conus terminates at a normal level. No abnormal signal is seen within the visualized distal spinal cord. No clumping of intrathecal nerve roots. No soft tissue abnormality in the visualized abdomen or pelvis. T12-L1: Minimal spinal stenosis due to osseous retropulsion. No significant neural foraminal narrowing. L1-L2: Disc bulge. Mild spinal stenosis. No significant neural foraminal narrowing. L2-L3: No disc bulge. No facet arthropathy. No significant spinal stenosis or neural foraminal narrowing. L3-L4: Disc bulge. Mild facet arthropathy. Ligamentum flavum thickening. Mild spinal stenosis. No significant neural foraminal narrowing. L4-L5: Disc bulge. Moderate facet arthropathy. Ligamentum flavum thickening. Mild to moderate spinal stenosis and lateral recess narrowing. Mild bilateral neural foraminal narrowing. L5-S1: Disc bulge with left foraminal/far lateral protrusion. Mild left and moderate facet arthropathy. No significant spinal stenosis. Moderate left neural foraminal narrowing. IMPRESSION: 1. Acute to subacute L1 compression deformity with 40% height loss. 2. Mild to moderate lumbar spondylosis, detailed level by level above. Electronically signed by: Percy Arango MD (05/06/2019 5:03 PM) [facility]
== END | disposition home or self-care (01) ==
LOC: MRI 15:09
PROVIDERS: ATTEND Nurse Practitioner Family
DX: M51.27 Other intervertebral disc displacement, lumbosacral region (principal); M48.07 Spinal stenosis, lumbosacral region; M12.88 Other specific arthropathies, not elsewhere classified, other specified site; M47.816 Spondylosis without myelopathy or radiculopathy, lumbar region
CPT/HCPCS: 72141; 72148

== ENCOUNTER → 2019-05-19 | Outpatient (CLI) | payer MEDICARE ==
[2017-02-19 09:58] VITALS: BP 140/67
[~2019-05-19] MED LIST changes: +ACET325T9 PO; +CITA10TA8 PO; +IOHEXOL 180 MG/ML 10 ML VIAL. ONE; +MELO15TA23 PO; +METH1ADH7 TP; +SIMV20TA18 PO; -SIMV20TA3 PO; +methylPREDNISolone ACETATE 40 MG/ML VIAL. ONE; +methylPREDNISolone ACETATE 80 MG/ML VIAL. ONE
--- NOTE | 2019-05-19 16:23 | PAIN ---
DATE OF SERVICE: 05/19/2019 INITIAL CONSULTATION FOR PAIN CLINIC CHIEF COMPLAINT: Low back pain. HISTORY OF PRESENT ILLNESS: This is an 83-year-old female with history of pain in low back and into the left lower extremity. The patient has significant nonspecified dementia. Her son and daughter are both present and serve as sources for historical data and past medical history as well as current symptomatology as the patient is unable to accurately reflect events of greater than 30 minutes prior to speaking to her by [facility] documentation. The patient presents with history of low back pain and does have MRI scan of the lumbar and cervical spines, lumbar spine showing L1 compression fracture about 40%, also degenerative changes in the disk at the L4-L5 and L5-S1 levels with disk bulge in left foraminal to far lateral protrusion at L5-S1. L4-L5 shows disk bulge as does L3-L4 and L1-L2 with some moderate stenosis at L4-L5. The patient via her son and daughter reports that the pain is sharp and aching, mostly noticeable with change in positions from standing to sitting, sitting to standing. She is at [facility] and the nursing care providers reported that she has significant pain, where she screams out in pain and agony when being transferred from the bed to the chair, to go to the bathroom or getting clothing changes and getting back to the bed. When she is lying down, she is fine. When she is sitting, she is fine without pain. The patient is unable to rate disability ratings for her activities. She has not had any current therapies except for some physical therapy in the past, but is not doing any stretching and strength exercises or other modalities at this time. She reports that the physical therapy she believes was helpful, but this was many years ago. PAST MEDICAL HISTORY: Significant for hypertension; hearing loss, wearing hearing aids; arthritis; dementia; depression; hypercholesterolemia. PAST SURGICAL HISTORY: Includes hysterectomy. CURRENT MEDICATIONS: Include simvastatin, docusate, omeprazole, multivitamins, Celexa, Fosamax, meloxicam, Tylenol, hydrocodone, Salonpas patches, lisinopril, donepezil, gabapentin, vitamin D, and Naproxen. ALLERGIES: The patient has no known drug allergies. FAMILY HISTORY: Significant for hypertension. SOCIAL HISTORY: The patient does not drink alcohol, does not smoke, does not use any illegal, illicit, or recreational drugs. The patient is and lives in a local [facility]. REVIEW OF SYSTEMS: Positive for those items mentioned in history of present illness. All systems reviewed and otherwise negative. Again, via the patient's daughter and son and well documented on the patient's chart. PHYSICAL EXAMINATION: VITAL SIGNS: The patient's blood pressure is 130/65, pulse 63, respirations 18, temperature is 97.7 degrees Fahrenheit. Height is 4 feet 11 inches, weighs 140 pounds. GENERAL: The patient is awake, alert, oriented, appropriate, very pleasant demeanor. Again, the patient without ability to track questions and answer appropriately. HEENT: Shows normocephalic, atraumatic. The patient is wearing hearing aids. Extraocular movements are intact and symmetrical. Oral cavity shows mucous membranes moist and pink. NECK: Shows anterior throat supple without palpable lymphadenopathy noted. Swallow reflex is symmetrical. Neck shows full rotational motion of the cervical spine without significant difficulty or pain including lateral rotation greater than 45 degrees with full extension, full forward flexion without difficulty. CHEST: Shows normal on inspection. Breath sounds are shallow, but clear bilaterally. HEART: Shows S1, S2 clear. No murmurs auscultated. ABDOMEN: Soft, nontender, nondistended. No palpable organomegaly is noted. No rebound or guarding demonstrated. BACK: Shows spine grossly in the midline, fairly significant flattening of cervical lordotic curvature as well as exaggeration of thoracic kyphotic curvature and some flattening of lumbar lordotic curvature as well. No previous surgical scars are noted. Lumbar paraspinous muscle shows symmetrical on inspection, on palpation shows some moderate tenderness throughout the upper, middle, and lower distribution of the paraspinous musculature with the patient reporting pain even with moderate palpation in the lower distributions. No specific pain over the posterior superior iliac spines or the sacroiliac regions or the spinous processes even in the upper lumbar and lower thoracic with deeper palpation over the spinous processes. No significant pain reported at the area of the compression fracture at L1. EXTREMITIES: The patient's lower extremities show deep tendon reflexes at 1+ in the patellar and tendo-calcaneus tendons. Motor exam is approximately 3-4 on a scale of 5 and equal dorsiflexion, extension, quadriceps and hamstring flexion. Peripheral pulses are 1+ posterior tibia. No peripheral edema is noted bilaterally. The patient defers getting up out of a chair by her son and daughter's request as well for evaluation of walking and this was omitted. The patient does use a wheelchair with all traveling situations even in her own [facility] room. SKIN: Shows warm and dry, good turgor. No edema. No sores or rashes throughout. IMPRESSION: 1. This is an 83-year-old female with approximately 1-month history of increasing pain in low back and left hip as noted. 2. Lumbar spine MRI scan as noted. 3. Hypertension. 4. Arthritis. 5. Hearing loss. 6. Dementia. PLAN: Options were discussed with the patient and the patient's son and daughter including conservative medical managements, physical therapies, and interventional techniques. They would like to pursue interventional techniques. We discussed a lumbar epidural steroid injection using description as well as anatomical models to describe the procedure. Risks were then discussed including, but not limited to bleeding, infection, possibility of epidural hematoma, subsequent neurological compromise, dural puncture, headaches, spinal cord and/or nerve damage, side effects of steroid medication and poor results regarding pain control. The patient understands and wished to proceed. The patient will return to clinic in approximately 2 weeks for followup. She was counseled on return appointment, activity level, and side effects to be aware of. It is noted, the patient's daughter is her power of claims attorney. All her questions were answered to her satisfaction and she signs the consent form for her mother. DIAGNOSIS: Lumbar radiculopathy with lumbar degenerative disk disease and compression fracture at L1. PROCEDURE: Lumbar epidural steroid injection, translaminar approach at the L4-L5 level using C-arm fluoroscopic guidance under sterile prep and drape using local anesthetic. MEDICATION INJECTED: A total of 120 mg Depo-Medrol plus 10 mL of preservative-free normal saline and 2 mL of contrast. CONDITION AT DISCHARGE: Stable. The patient tolerated the procedure well, had no complications. TERRI HAKWINS MD DR: ALYSHA/valerie JOB#: [id number] / [id number]
== END ==
LOC: PNCL 13:08
PROVIDERS: ATTEND Anesthesiology
DX: M51.16 Intervertebral disc disorders with radiculopathy, lumbar region (principal); M48.56XA Collapsed vertebra, not elsewhere classified, lumbar region, initial encounter for fracture; I10 Essential (primary) hypertension; F03.90 Unspecified dementia, unspecified severity, without behavioral disturbance, psychotic disturbance, mood disturbance, and anxiety; F32.9 Major depressive disorder, single episode, unspecified; E78.00 Pure hypercholesterolemia, unspecified; Z87.39 Personal history of other diseases of the musculoskeletal system and connective tissue; Z90.710 Acquired absence of both cervix and uterus
CPT/HCPCS: 62323; J1030; J1040; Q9965

== ENCOUNTER → 2019-06-07 | Outpatient (CLI) | payer MEDICARE ==
[2017-02-19 09:58] VITALS: BP 140/67
[~2019-06-07] MED LIST changes: -IOHEXOL 180 MG/ML 10 ML VIAL. ONE; -methylPREDNISolone ACETATE 40 MG/ML VIAL. ONE; -methylPREDNISolone ACETATE 80 MG/ML VIAL. ONE
--- NOTE | 2019-06-07 14:48 | PAIN ---
DATE OF SERVICE: 06/07/2019 PROGRESS NOTE FOR PAIN CLINIC DIAGNOSES: Lumbar radiculopathy with lumbar degenerative disk disease and lumbar compression fracture. HISTORY OF PRESENT ILLNESS: The patient is an 83-year-old female who returns for followup status post lumbar epidural steroid injection x 1. The patient's daughter accompanies her and we have some reports from her halfway where her nurses are taking care of her there that she was doing quite a bit better, increasing her mobility. She still requires significant assistance transporting from seated to bed and walking activities with lot of assistance with all movement, but reports from the halfway and the patient's daughters that her pain was significantly decreased when she was moving and she was not complaining as much about pain with changes in positions. The patient reports the pain is dull in her low back mainly, but also some in the mid upper back. The patient is unable to recollect history. 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 The patient's daughter is present and gives most of her history and recent history as well. PHYSICAL EXAMINATION: VITAL SIGNS: The patient's blood pressure 163/73, pulse 65, respirations 18, temperature 98.8 degrees Fahrenheit. GENERAL: The patient is awake, alert, oriented, appropriate, very pleasant demeanor. The patient accompanied by her daughter. HEENT: Shows normocephalic, atraumatic. The patient wears eyeglasses. Extraocular movements are intact and symmetrical. Oral cavity: Mucous membranes moist and pink. NECK: Shows anterior throat supple. CHEST: Shows breath sounds clear bilaterally. Chest shows normal on inspection. ABDOMEN: Soft, nontender, nondistended. BACK: Shows spine grossly in the midline, significant increase in thoracic kyphosis and flattening of lumbar lordotic curvature. Lumbar paraspinous muscle shows symmetrical on inspection, very mildly tender throughout the upper, middle and lower distribution of paraspinous muscles, also some mild tenderness in the upper thoracic paraspinous musculature, but no atrophy and hypertrophy, no trigger points, no radiation of pain, and no significant tenderness over the spinous processes despite a history of compression fracture at L1. EXTREMITIES: The patient's lower extremities show deep tendon reflexes 1+ in the patellar tendons. Motor exam is approximately 3-4 on a scale of 5, but symmetrical with dorsiflexion, extension, quadriceps and hamstring flexion. Peripheral pulses are 1+. No peripheral edema is noted bilaterally. Options were discussed with the patient and the patient's daughter. The patient's old chart was reviewed as her current medication regimen updated. Current review of systems updated today as well and we will hold on any further injections at this time as from past reports from the patient's nursing staff as well as the patient's daughter, she is still doing fairly well and the pain has decreased significantly without any significant increase in pain since her last visit. We will hold on any further injections at this time. The patient's daughter would like to bring her back in about 2 weeks. We discussed to reevaluate and get more information from the patient's nursing staff as well as her day-to-day pain levels with mobility exercises, etc. The patient will follow up in approximately 2 weeks as scheduled. TERRI HAWKINS MD DR: ALYSHA/valerie JOB#: [id number] / [id number]
== END | disposition home or self-care (01) ==
LOC: PNCL 13:00
PROVIDERS: ATTEND Anesthesiology
DX: M48.56XA Collapsed vertebra, not elsewhere classified, lumbar region, initial encounter for fracture (principal); M51.16 Intervertebral disc disorders with radiculopathy, lumbar region
CPT/HCPCS: G0463

== ENCOUNTER → 2019-06-21 | Outpatient (CLI) | payer MEDICARE ==
[2017-02-19 09:58] VITALS: BP 140/67
[~2019-06-21] MED LIST changes: +methylPREDNISolone ACETATE 40 MG/ML VIAL. ONE; +methylPREDNISolone ACETATE 80 MG/ML VIAL. ONE
--- NOTE | 2019-06-21 23:44 | PAIN ---
DATE OF SERVICE: 06/21/2019 PROGRESS NOTE FOR PAIN CLINIC DIAGNOSES: Lumbar radiculopathy with lumbar degenerative disk disease and lumbar compression fracture. HISTORY OF PRESENT ILLNESS: The patient is an 83-year-old female who returns for followup status post lumbar epidural steroid injection x 1. We had seen her on 06/07/2019; she was doing quite a bit better. The patient returns today with her daughter reporting still increasing pain in the low back and some into the right lower extremity, but reports from her detention has been consistent about having some pain with changing positions from sitting to standing, getting in and out of bed and transporting, etc. The patient reports the pain is dull in her low back, rates at 8 on a scale of 10 at all times, worst, average at least over the past week, occasional shooting into the right side, but worse with changing positions. The patient reports no new motor or sensory deficits, no new bowel or bladder incontinence or other complaints. PHYSICAL EXAMINATION: VITAL SIGNS: The patient's blood pressure is 163/68, pulse 87, respirations are 18, temperature is 98.3 degrees Fahrenheit. GENERAL: The patient is awake, alert, oriented, appropriate, very pleasant demeanor. HEENT: Shows normocephalic, atraumatic. Extraocular movements are intact and symmetrical. Oral cavity: Mucous membranes moist and pink. Dentition is intact. NECK: Shows anterior throat supple without palpable lymphadenopathy noted. Swallow reflex symmetrical. CHEST: Shows normal on inspection. Breath sounds clear bilaterally. HEART: Shows S1, S2 clear. No murmurs auscultated. ABDOMEN: Obese and soft, nontender, nondistended. No palpable organomegaly is noted. No rebound or guarding demonstrated. BACK: Shows spine grossly in the midline. Normal appearing thoracic kyphosis and some flattening of lumbar lordotic curvature. Lumbar paraspinous muscle shows symmetrical on inspection, on palpation shows some moderate tenderness diffusely throughout the upper, middle and lower distribution of paraspinous muscles bilaterally, but only diffusely without significant radiation, without trigger points. EXTREMITIES: The patient's lower extremities show deep tendon reflexes at 1+ in the patellar tendons. Motor exam is approximately 3-4 on a scale of 5, but symmetrical dorsiflexion, extension and peripheral pulses are 1+ posterior tibial. Options were discussed with the patient, patient's daughter. The patient's old chart was reviewed as her current medication regimen updated. Current review of systems is updated as well. We will proceed with a lumbar epidural steroid injection, second in the series today with risks discussed including, but not limited to bleeding, infection, possibility of epidural hematoma, subsequent neurological compromise, dural puncture, headaches, spinal cord and/or nerve damage, side effects of steroid medication and poor results regarding pain control. The patient understands and wished to proceed. The patient will return to clinic in approximately 2 weeks for followup. She was counseled on return appointment, activity level and side effects to be aware of. DIAGNOSES: Lumbar radiculopathy with lumbar degenerative disk disease. PROCEDURE: Lumbar epidural steroid injection, translaminar approach at L4-L5 level using sterile prep and drape under local anesthetic. MEDICATION INJECTED: A total of 120 mg Depo-Medrol plus 10 mL of preservative-free normal saline. CONDITION AT DISCHARGE: Stable. The patient tolerated procedure well, had no complications. TERRI HAWKINS MD DR: ALYSHA/nts JOB#: [id number] / [id number]
== END ==
LOC: PNCL 13:54
PROVIDERS: ATTEND Anesthesiology
DX: M51.16 Intervertebral disc disorders with radiculopathy, lumbar region (principal); M48.56XA Collapsed vertebra, not elsewhere classified, lumbar region, initial encounter for fracture
CPT/HCPCS: 62323; J1030; J1040

== ENCOUNTER 2019-08-20 16:08 | Emergency (ER) | payer MEDICARE ==
[~2019-08-20] VITALS: Ht 152.4 cm; Wt 60.0 kg
[~2019-08-20 16:08] MED LIST changes: -methylPREDNISolone ACETATE 40 MG/ML VIAL. ONE; -methylPREDNISolone ACETATE 80 MG/ML VIAL. ONE
--- NOTE | 2019-08-20 16:35 | PHYS DOC ---
Past Medical History Past Medical History: Dementia, GERD, High Cholesterol, Hypertension Additional Past Medical Histor: neuropathy, FOOD BOLUS, HIATAL HERNIA Past Surgical History: Hysterectomy, Other Additional Past Surgical Histo: THROAT STRETCHED, ENDOSCOPY Alcohol Use: None Drug Use: None Adult General Chief Complaint Chief Complaint: OTHER COMPLAINTS HPI HPI Patient is a 84 year old female who presents with per EMS from [facility]. Nursing staff stated that when the patient was eating her snack today she began to choke briefly but never lost her airway. They state after that she's been spitting up saliva. Nursing staff states that in the past she has had food boluses and had to have her esophagus stretched. Review of Systems Review of Systems GI: Food bolus. Denies abdominal pain, nausea, vomiting, bloody stools or diarrhea [] All other systems were reviewed and found to be within normal limits, except as documented in this note. Allergies Allergies Allergies Coded Allergies Type Severity Reaction Last Updated Verified codeine Adverse Reaction Intermediate Nausea and Vomiting 02/19/17 Yes Physical Exam Physical Exam Constitutional: Well developed, well nourished, no acute distress, non-toxic appearance. [] HENT: Normocephalic, atraumatic, bilateral external ears normal, oropharynx moist, no oral exudates, nose normal. Spitting up saliva. [] Eyes: PERRLA, EOMI, conjunctiva normal, no discharge. [] Neck: Normal range of motion, no tenderness, supple, no stridor. [] Cardiovascular:Heart rate regular rhythm, no murmur [] Lungs & Thorax: Bilateral breath sounds clear to auscultation [] Abdomen: Bowel sounds normal, soft, no tenderness, no masses, no pulsatile masses. [] Skin: Warm, dry, no erythema, no rash. [] Back: No tenderness, no CVA tenderness. [] Extremities: No tenderness, no cyanosis, no clubbing, ROM intact, no edema. [] Neurologic: Alert and oriented to self and place, normal motor function, normal sensory function, no focal deficits noted. [] Psychologic: Affect normal, judgement normal, mood normal. [] Current Patient Data Vital Signs Vital Signs Date Time Temp Pulse Resp B/P (MAP) Pulse Ox O2 Delivery O2 Flow Rate FiO2 08/20/19 16:20 98.7 68 18 198/81 (120) 91 Room Air 98.7 Lab Values Laboratory Tests Test 08/20/19 16:30 White Blood Count 10.8 x10^3/uL (4.0-11.0) Red Blood Count 4.84 x10^6/uL (3.50-5.40) Hemoglobin 14.5 g/dL (12.0-15.5) Hematocrit 44.0 % (36.0-47.0) Mean Corpuscular Volume 91 fL (79-100) Mean Corpuscular Hemoglobin 30 pg (25-35) Mean Corpuscular Hemoglobin Concent 33 g/dL (31-37) Red Cell Distribution Width 14.0 % (11.5-14.5) Platelet Count 321 x10^3/uL (140-400) Neutrophils (%) (Auto) 69 % (31-73) Lymphocytes (%) (Auto) 23 % (24-48) L Monocytes (%) (Auto) 5 % (0-9) Eosinophils (%) (Auto) 2 % (0-3) Basophils (%) (Auto) 1 % (0-3) Neutrophils # (Auto) 7.5 x10^3/uL (1.8-7.7) Lymphocytes # (Auto) 2.5 x10^3/uL (1.0-4.8) Monocytes # (Auto) 0.6 x10^3/uL (0.0-1.1) Eosinophils # (Auto) 0.2 x10^3/uL (0.0-0.7) Basophils # (Auto) 0.1 x10^3/uL (0.0-0.2) Sodium Level 148 mmol/L (136-145) H Potassium Level 3.4 mmol/L (3.5-5.1) L Chloride Level 109 mmol/L (98-107) H Carbon Dioxide Level 31 mmol/L (21-32) Anion Gap 8 (6-14) Blood Urea Nitrogen 14 mg/dL (7-20) Creatinine 0.7 mg/dL (0.6-1.0) Estimated GFR (Cockcroft-Gault) 79.7 BUN/Creatinine Ratio 20 (6-20) Glucose Level 101 mg/dL (70-99) H Calcium Level 9.1 mg/dL (8.5-10.1) Total Bilirubin 0.4 mg/dL (0.2-1.0) Aspartate Amino Transferase (AST) 19 U/L (15-37) Alanine Aminotransferase (ALT) 18 U/L (14-59) Alkaline Phosphatase 108 U/L (46-116) Total Protein 6.6 g/dL (6.4-8.2) Albumin 2.9 g/dL (3.4-5.0) L Albumin/Globulin Ratio 0.8 (1.0-1.7) L Laboratory Tests 08/20/19 16:30 Laboratory Tests 08/20/19 16:30 EKG EKG [] Radiology/Procedures Radiology/Procedures [] Impressions: [facility] [address] [place] [address] IMAGING REPORT Signed PATIENT: THANH TAVERAS ACCOUNT: [id number] : 1935 LOCATION: ER AGE: 84 SEX: F EXAM STATUS: PRE ER ORD. PHYSICIAN: JANICE LION APRN REASON: cant swallow PROCEDURE: PORTABLE CHEST 1V Chest AP portable at 1637: Reason for examination: Cough and chest pain. Possible food bolus impaction. Comparison is made to previous study dated 08/10/2016. Patient is rotated which compromises evaluation. There is soft tissue fullness in the inferior mediastinum which probably represents a large hiatal hernia. Heart and mediastinum are unchanged. Lung kenney show some elevation of the right hemidiaphragm and some linear atelectasis. No acute bony abnormalities are seen. IMPRESSION: Soft tissue fullness at the inferior mediastinum probably representing a large hiatal hernia. Elevation of the right hemidiaphragm with some atelectasis at the right lung field. Recommend follow-up. Electronically signed by: Rossy Mosqueda MD (08/20/2019 5:05 PM) [id number] DICTATED and SIGNED BY: ROSSY MOSQUEDA MD DATE: 08/20/19 1705 Course & Med Decision Making Course & Med Decision Making Patient knows where she is at but states she does not remember what she was e ating or the day time. Patient has dementia and Alzheimer's. She is alert. Abdomen soft and nontender. Patient denies any pain. She is spitting up saliva in a bag. Speaks in full clear sentences. Lungs are clear to auscultation in all lobes. Vital signs within normal limits. No respiratory distress. I have spoken to Dr Skinner concerning this patient. He is aware. 1738: GI called and stated they are ready for her. Patient is discharged from ED to GI Lab. Dragon Disclaimer Dragon Disclaimer This electronic medical record was generated, in whole or in part, using a voice recognition dictation system. Departure Departure Impression: Primary Impression: Food impaction of esophagus Disposition: HOME, SELF-CARE Condition: STABLE Referrals: DESTINI JAIMES MD (PCP) Patient Instructions: Medical Screening Exam Problem Qualifiers Primary Impression: Food impaction of esophagus Encounter type: initial encounter Qualified Codes: T18.128A - Food in esophagus causing other injury, initial encounter JANICE LION APRN Aug 20, 2019 16:35
[2019-08-20 16:48] LABS: BASO # 0.1 x10^3/uL (0.0-0.2); BASO % 1 % (0-3); EOS # 0.2 x10^3/uL (0.0-0.7); EOS % 2 % (0-3); HEMOGLOBIN 14.5 g/dL (12.0-15.5); LYMPH # 2.5 x10^3/uL (1.0-4.8); LYMPH % 23 % (24-48); MEAN CORPUSCULAR HEMOGLOBIN 30 pg (25-35); MEAN CORPUSCULAR HGB CONC 33 g/dL (31-37); MEAN CORPUSCULAR VOLUME 91 fL (79-100); MONO # 0.6 x10^3/uL (0.0-1.1); MONO % 5 % (0-9); NEUT # 7.5 x10^3/uL (1.8-7.7); NEUT % 69 % (31-73); PLATELET COUNT 321 x10^3/uL (140-400); RED BLOOD COUNT 4.84 x10^6/uL (3.50-5.40); WHITE BLOOD COUNT 10.8 x10^3/uL (4.0-11.0)
[2019-08-20 16:55] LABS: CALCIUM 9.1 mg/dL (8.5-10.1); CREATININE 0.7 mg/dL (0.6-1.0); GFR 79.7; POTASSIUM 3.4 mmol/L (3.5-5.1)
[2019-08-20 17:00] LABS: ALBUMIN 2.9 g/dL (3.4-5.0); ALBUMIN/GLOBULIN RATIO 0.8 (1.0-1.7); TOTAL BILIRUBIN 0.4 mg/dL (0.2-1.0); TOTAL PROTEIN 6.6 g/dL (6.4-8.2)
--- NOTE | 2019-08-20 17:08 | RAD ---
Chest AP portable at 1637: Reason for examination: Cough and chest pain. Possible food bolus impaction. Comparison is made to previous study dated 08/10/2016. Patient is rotated which compromises evaluation. There is soft tissue fullness in the inferior mediastinum which probably represents a large hiatal hernia. Heart and mediastinum are unchanged. Lung kenney show some elevation of the right hemidiaphragm and some linear atelectasis. No acute bony abnormalities are seen. IMPRESSION: Soft tissue fullness at the inferior mediastinum probably representing a large hiatal hernia. Elevation of the right hemidiaphragm with some atelectasis at the right lung field. Recommend follow-up. Electronically signed by: Rossy Lugo MD (08/20/2019 5:05 PM) [id number]
--- NOTE | 2019-08-20 18:04 | PDOC2 ---
CONSULT Date of Consult Date of Consult DATE: 08/20/19 TIME: 17:48 Reason for Consult Reason for Consult: esophageal food bolus with dysphagia History of Present Illness Reason for Visit: This is an 84 yo female with history of esophageal stricture, large hiatal hernia and prior food impaction - the last of which was in 2017. Apparently doing well on dysphagia diet but had "snack " today which appeared to get stuck- regurgitated some eggs but did not improve- Still with feeling food in stuck so brought to ER- I talked with her daughter Past Medical History GI: GERD, Other (hiatal hernia with prior esophageal stricture) Social History ALCOHOL: none Drugs: None Current Problem List Problem List Problems Medical Problems: (1) Food impaction of esophagus Status: Acute Current Medications Current Medications Active Scripts Active Reported Hydrocodone-Apap 5-325 (Hydrocodone Bit/Acetaminophen) 1 Tab Tablet 1 Tab PO PRN Q6HRS PRN Salonpas Patch (Methyl Salicylate/Menthol) 1 Each Adh..patch 1 Each TP PRN PRN Meloxicam 15 Mg Tablet 1 Tab PO DAILY 30 Days Tylenol (Acetaminophen) 325 Mg Tablet 1-2 Tab PO QID Fosamax (Alendronate Sodium) 70 Mg Tablet 70 Mg PO WEEKLY Celexa (Citalopram Hydrobromide) 10 Mg Tablet 5 Mg PO DAILY Naproxen 500 Mg Tablet 1 Tab PO BID PRN Gabapentin (Gabapentin) 100 Mg Capsule 100 Mg PO DAILY Vitamin D3 (Cholecalciferol (Vitamin D3)) 1,000 Unit Tablet 1 Tab PO DAILY Simvastatin 20 Mg Tablet 20 Mg PO HS Donepezil Hcl 5 Mg Tablet 10 Mg PO DAILY Colace (Docusate Sodium) 100 Mg Capsule 100 Mg PO DAILY Omeprazole 40 Mg Capsule.dr 40 Mg PO DAILY Multivitamins (Multivitamin) 1 Each Capsule 1 Each PO DAILY Lisinopril 40 Mg Tablet 10 Mg PO DAILY Allergies Allergies: Coded Allergies: codeine (Verified Adverse Reaction, Intermediate, Nausea and Vomiting, 02/19/17) Physical Exam General: Other (confused) Lungs: Clear to auscultation Heart: Regular rate, Normal S1, Normal S2 Abdomen: Normal bowel sounds, Soft, No tenderness, No hepatosplenomegaly Vitals VITALS Vital Signs Date Time Temp Pulse Resp B/P (MAP) Pulse Ox O2 Delivery O2 Flow Rate FiO2 08/20/19 16:20 98.7 68 18 198/81 (120) 91 Room Air 98.7 Labs Labs Laboratory Tests Test 08/20/19 16:30 White Blood Count 10.8 x10^3/uL (4.0-11.0) Red Blood Count 4.84 x10^6/uL (3.50-5.40) Hemoglobin 14.5 g/dL (12.0-15.5) Hematocrit 44.0 % (36.0-47.0) Mean Corpuscular Volume 91 fL (79-100) Mean Corpuscular Hemoglobin 30 pg (25-35) Mean Corpuscular Hemoglobin Concent 33 g/dL (31-37) Red Cell Distribution Width 14.0 % (11.5-14.5) Platelet Count 321 x10^3/uL (140-400) Neutrophils (%) (Auto) 69 % (31-73) Lymphocytes (%) (Auto) 23 % (24-48) Monocytes (%) (Auto) 5 % (0-9) Eosinophils (%) (Auto) 2 % (0-3) Basophils (%) (Auto) 1 % (0-3) Neutrophils # (Auto) 7.5 x10^3/uL (1.8-7.7) Lymphocytes # (Auto) 2.5 x10^3/uL (1.0-4.8) Monocytes # (Auto) 0.6 x10^3/uL (0.0-1.1) Eosinophils # (Auto) 0.2 x10^3/uL (0.0-0.7) Basophils # (Auto) 0.1 x10^3/uL (0.0-0.2) Sodium Level 148 mmol/L (136-145) Potassium Level 3.4 mmol/L (3.5-5.1) Chloride Level 109 mmol/L (98-107) Carbon Dioxide Level 31 mmol/L (21-32) Anion Gap 8 (6-14) Blood Urea Nitrogen 14 mg/dL (7-20) Creatinine 0.7 mg/dL (0.6-1.0) Estimated GFR (Cockcroft-Gault) 79.7 BUN/Creatinine Ratio 20 (6-20) Glucose Level 101 mg/dL (70-99) Calcium Level 9.1 mg/dL (8.5-10.1) Total Bilirubin 0.4 mg/dL (0.2-1.0) Aspartate Amino Transf (AST/SGOT) 19 U/L (15-37) Alanine Aminotransferase (ALT/SGPT) 18 U/L (14-59) Alkaline Phosphatase 108 U/L (46-116) Total Protein 6.6 g/dL (6.4-8.2) Albumin 2.9 g/dL (3.4-5.0) Albumin/Globulin Ratio 0.8 (1.0-1.7) Laboratory Tests Test 08/20/19 16:30 White Blood Count 10.8 x10^3/uL (4.0-11.0) Red Blood Count 4.84 x10^6/uL (3.50-5.40) Hemoglobin 14.5 g/dL (12.0-15.5) Hematocrit 44.0 % (36.0-47.0) Mean Corpuscular Volume 91 fL (79-100) Mean Corpuscular Hemoglobin 30 pg (25-35) Mean Corpuscular Hemoglobin Concent 33 g/dL (31-37) Red Cell Distribution Width 14.0 % (11.5-14.5) Platelet Count 321 x10^3/uL (140-400) Neutrophils (%) (Auto) 69 % (31-73) Lymphocytes (%) (Auto) 23 % (24-48) Monocytes (%) (Auto) 5 % (0-9) Eosinophils (%) (Auto) 2 % (0-3) Basophils (%) (Auto) 1 % (0-3) Neutrophils # (Auto) 7.5 x10^3/uL (1.8-7.7) Lymphocytes # (Auto) 2.5 x10^3/uL (1.0-4.8) Monocytes # (Auto) 0.6 x10^3/uL (0.0-1.1) Eosinophils # (Auto) 0.2 x10^3/uL (0.0-0.7) Basophils # (Auto) 0.1 x10^3/uL (0.0-0.2) Sodium Level 148 mmol/L (136-145) Potassium Level 3.4 mmol/L (3.5-5.1) Chloride Level 109 mmol/L (98-107) Carbon Dioxide Level 31 mmol/L (21-32) Anion Gap 8 (6-14) Blood Urea Nitrogen 14 mg/dL (7-20) Creatinine 0.7 mg/dL (0.6-1.0) Estimated GFR (Cockcroft-Gault) 79.7 BUN/Creatinine Ratio 20 (6-20) Glucose Level 101 mg/dL (70-99) Calcium Level 9.1 mg/dL (8.5-10.1) Total Bilirubin 0.4 mg/dL (0.2-1.0) Aspartate Amino Transf (AST/SGOT) 19 U/L (15-37) Alanine Aminotransferase (ALT/SGPT) 18 U/L (14-59) Alkaline Phosphatase 108 U/L (46-116) Total Protein 6.6 g/dL (6.4-8.2) Albumin 2.9 g/dL (3.4-5.0) Albumin/Globulin Ratio 0.8 (1.0-1.7) Images Images CXR- hiatal hernia no infiltrate Assessment/Plan Assessment/Plan Acute food bolus obstruction of esophagus- history of esophageal stricture, large hiatal hernia and prior food bolus issues- last EGD with dilation was 2016. On dysphagia diet and reported doing well but had "snack " which may not have been soft enough. Here with signs of esophageal obstruction- Plan- plan URGENT EGD with food bolus removal and possible dilation JORDANA NARVAEZ MD Aug 20, 2019 18:04
[2019-08-20] MEDS ORDERED: PROPOFOL 20 ML IV ONE (18:13)
[2019-08-20] MEDS ORDERED: LIDOCAINE 2% PF 5 ML VIAL. ONE (18:13)
[2019-08-20] MEDS ORDERED: LABETALOL 20 MG/4 ML DISP.SYRIN. IVP ONE (18:45)
[2019-08-20 19:02] VITALS: BP 160/72
== END 2019-08-20 17:56 | disposition home or self-care (01) ==
LOC: SURG 16:08
DX: T18.128A Food in esophagus causing other injury, initial encounter (principal); E78.00 Pure hypercholesterolemia, unspecified; K21.9 Gastro-esophageal reflux disease without esophagitis; I10 Essential (primary) hypertension; F03.90 Unspecified dementia, unspecified severity, without behavioral disturbance, psychotic disturbance, mood disturbance, and anxiety; Z90.710 Acquired absence of both cervix and uterus; Z88.5 Allergy status to narcotic agent; X58.XXXA Exposure to other specified factors, initial encounter; Y93.89 Activity, other specified; Y92.89 Other specified places as the place of occurrence of the external cause; Y99.8 Other external cause status
CPT/HCPCS: 36415; 43450; 71045; 80053; 85025; 99285; J2001; J2704; J3490